=== PATIENT | female | born 1955 | race Asian ===

== ENCOUNTER → 2018-09-24 | Day surgery (SDC) | payer MEDICARE ==
[~2018-09-24] MED LIST: ACETAMINOPHEN 1000 MG/100 ML IV ONE; AMLODIPINE BESY10 MG PO; ASPIR 8181 MG; BUPIVACAINE 0.25%/EPI 30ML SDV INJ ONE; CALCIUM; CEFAZOLIN SOD 1 GM VIAL ONE; DEXAMETHASONE SOD PHOS INJ 4 MG/ML VIAL ONE; FENTANYL CITRATE/PF 100MCG/2 ML INJ ONE; GLYCOPYRROLATE INJ 1MG/ 5 ML SYR ONE; LIDOCAINE HCL 2% LOCAL INJ 5 ML SDV VIAL INJ ONE; MIDAZOLAM HCL 2 MG/2 ML VIAL ONE; MULTI-VITAMIN1 EACH; NEOSTIGMINE 5 MG/5ML SYR ONE; ONDANSETRON HCL INJ 2 MG/ML VIAL ONE; PROPOFOL IV EMULSION 10 MG/ML 20 ML VIAL ONE; ROCURONIUM BROMIDE 10 MG/ML 5ML VIAL ONE; SEVOFLURANE INHAL SOLN 250 ML PEN BTL ONE; VITAMIN B-121000 MCG PO; VITAMIN C500 M1; VITAMIN D31000 UNI1
--- NOTE | 2018-09-24 08:33 | Diagnostic Imaging Report ---
PROCEDURE: Frontal and lateral views of the chest. COMPARISON: None. INDICATIONS: PRE-OPERATIVE CHEST X-RAY FOR CHOLECYSTECTOMY FINDINGS: Lines/tubes: None. Lungs: The lungs are well inflated and clear. There is no evidence of pneumonia or pulmonary edema. Pleura: There is no pleural effusion or pneumothorax. Heart and mediastinum: The cardiomediastinal silhouette is unremarkable. Atherosclerotic aortic calcifications with thoracic aortic ectasia. Bones: Dextroconvex curvature of the thoracic spine. Degenerative changes of the visualized spine. IMPRESSION: No acute radiographic abnormality. Dictated by: TREVER LEONARD M.D. on 09/24/2018 at 8:44 Electronically approved by: TREVER LEONARD M.D. on 09/24/2018 at 8:44
[2018-09-24 08:47] LABS: BASOPHILS # (AUTO) 0.1 (0.0-0.1); BASOPHILS % 1.1 % (0.0-1.0); EOSINOPHILS # (AUTO) 0.2 (0.0-0.4); EOSINOPHILS % 2.4 % (0.0-6.0); HEMATOCRIT 40.6 % (34.2-44.1); HEMOGLOBIN 12.5 g/dL (12.0-16.0); LYMPHOCYTES # (AUTO) 2.3 (1.0-3.2); LYMPHOCYTES % 36.8 % (18.0-39.1); MEAN CORPUSCULAR HEMOGLOBIN 20.3 pg (28-32); MEAN CORPUSCULAR HGB CONC 30.8 g/dL (31-35); MEAN CORPUSCULAR VOLUME 65.9 fL (81-99); MONOCYTES # (AUTO) 0.6 (0.2-0.8); MONOCYTES % 8.8 % (4.4-11.3); NEUTROPHILS # (AUTO) 3.2 (2.1-6.9); NEUTROPHILS % 50.6 % (38.7-80.0); PLATELET COUNT 292 x10e3/uL (140-360); RED BLOOD COUNT 6.16 x10e6/uL (3.6-5.1); RED CELL DISTRIBUTION WIDTH 17.5 % (11.7-14.4)
[2018-09-24 09:06] LABS: ALANINE AMINOTRANSFERASE 31 IU/L (0-55); ALBUMIN 4.5 g/dL (3.5-5.0); ALBUMIN/GLOBULIN RATIO 1.2 (0.8-2.0); ALKALINE PHOSPHATASE 83 IU/L (40-150); ANION GAP 15.9 mmol/L (8-16); BLOOD UREA NITROGEN 10 mg/dL (7-26); BUN/CREATININE RATIO 14 (6-25); CALCIUM 9.7 mg/dL (8.4-10.2); CARBON DIOXIDE 23 mmol/L (22-29); CHLORIDE 105 mmol/L (98-107); CREATININE, SERUM 0.69 mg/dL (0.57-1.11); EST GLOMERULAR FILTRATION RATE > 60 ML/MIN (60-); GLUCOSE 113 mg/dL (74-118); POTASSIUM 3.9 mmol/L (3.5-5.1); SODIUM 140 mmol/L (136-145)
[2018-09-24 13:45] VITALS: BP 117/60
--- NOTE | 2018-09-24 14:05 | Operative Report ---
DATE OF PROCEDURE: September 24, 2018 PREOPERATIVE DIAGNOSIS: Chronic cholecystitis and cholelithiasis. POSTOPERATIVE DIAGNOSIS: Chronic cholecystitis and cholelithiasis. PROCEDURE PERFORMED: Laparoscopic cholecystectomy. [employer]: KAILA Montñao ANESTHESIA: General endotracheal. ESTIMATED BLOOD LOSS: Minimal. DRAINS: None. INDICATIONS AND FINDINGS: The patient is a 63-year-old female with a several-year history of right upper quadrant pain and fatty food intolerance. She had gallstones by CT and no ductal dilatation. Liver chemistries were normal. Intraoperative findings were cholelithiasis, evidence of chronic adhesions of the gallbladder to the omentum and to the distal part of the stomach. The patient had extensive adhesions in the lower part of the abdomen. The only surgery that she had intra-abdominally or pelvic were 2 C-sections. DESCRIPTION OF PROCEDURE: With the patient lying on the operative table in the supine position, after administration of general anesthesia, she was prepped and draped for laparoscopic cholecystectomy. The procedure was begun by establishing a pneumoperitoneum in the right upper quadrant mid-clavicular line because of the previous C-sections. After the saline drop test was performed indicating intraperitoneal position of the needle and the pneumoperitoneum was created to 15 mm pressure, we placed a 5-mm trocar there. Immediately came into view multiple adhesions. We placed a 10-mm subxiphoid port, and then a right anterior axillary line 5-mm trocar was placed. We went ahead and, after seeing the extent of the adhesions which extended up to the umbilicus and superior, decided it would be best to avoid any potential bowel by lysing adhesions which were extensive of the omentum. We placed the umbilical trocar to the right of the umbilicus and away from where the adhesions were to obtain good visualization of the operative field. We rotated the patient to the left and with the head up. Then we retracted the gallbladder using forceps through the 5-mm trocars and began the dissection, sharply the stomach and the omentum from the gallbladder, then exposed the hepatoduodenal ligament. The cystic duct was identified. It was short, and it was not dilated. The cystic artery was also identified. At that point, we went ahead and identified the common duct as well as the common hepatic duct. We then clipped the cystic duct 3 times, once proximally, and then transected it. The same thing was done to the cystic artery. Then we continued the dissection along the liver bed using electrocautery dissection. We the gallbladder from the liver bed. Any minor oozing was cauterized. Then we placed the gallbladder in an Endo bag and removed it through the umbilical port. We then reinstituted the pneumoperitoneum and inspected the operative field. There was no bile leak, no bleeding, no apparent bowel injury. Then we went ahead and released the pneumoperitoneum. We closed the wounds using #0 Vicryl for the umbilical fascia and rectus sheath and 3-0 Vicryl for the subcutaneous tissue in that location as well as the subxiphoid port. The skin of all the ports was closed using judith. Marcaine 0.25% with epinephrine was given as a local block at the end of the case. The patient tolerated the procedure well and was taken to the recovery room in stable condition. The patient's was informed of the intraoperative findings and given postop instructions. Job#: [id number]
== END | disposition home or self-care (01) ==
LOC: OR 07:25
PROVIDERS: ATTEND Surgery
DX: K80.10 Calculus of gallbladder with chronic cholecystitis without obstruction (principal); K82.8 Other specified diseases of gallbladder; K21.9 Gastro-esophageal reflux disease without esophagitis; I10 Essential (primary) hypertension; R42 Dizziness and giddiness; E78.00 Pure hypercholesterolemia, unspecified; Z91.013 Allergy to seafood; Z79.82 Long term (current) use of aspirin; Z87.891 Personal history of nicotine dependence
CPT/HCPCS: 36415; 47562; 71046; 80053; 85025; 88304; 93005; C1766; J0131; J0690; J1100; J2001; J2250; J2405; J2704; J3490

== ENCOUNTER → 2021-05-02 | Outpatient (CLI) | payer MEDICARE ==
[~2021-05-02] MED LIST changes: -ACETAMINOPHEN 1000 MG/100 ML IV ONE; -BUPIVACAINE 0.25%/EPI 30ML SDV INJ ONE; -CEFAZOLIN SOD 1 GM VIAL ONE; -DEXAMETHASONE SOD PHOS INJ 4 MG/ML VIAL ONE; -FENTANYL CITRATE/PF 100MCG/2 ML INJ ONE; -GLYCOPYRROLATE INJ 1MG/ 5 ML SYR ONE; -LIDOCAINE HCL 2% LOCAL INJ 5 ML SDV VIAL INJ ONE; -MIDAZOLAM HCL 2 MG/2 ML VIAL ONE; -NEOSTIGMINE 5 MG/5ML SYR ONE; -ONDANSETRON HCL INJ 2 MG/ML VIAL ONE; -PROPOFOL IV EMULSION 10 MG/ML 20 ML VIAL ONE; -ROCURONIUM BROMIDE 10 MG/ML 5ML VIAL ONE; -SEVOFLURANE INHAL SOLN 250 ML PEN BTL ONE
== END ==
LOC: DX 12:29
PROVIDERS: ATTEND Internal Medicine
DX: Z12.31 Encounter for screening mammogram for malignant neoplasm of breast (principal); M85.80 Other specified disorders of bone density and structure, unspecified site
CPT/HCPCS: 77080